=== PATIENT | male | born 2000 | race Two or more races ===

== ENCOUNTER 2020-10-18 22:55 | Emergency (ER) | payer OTHER ==
[~2020-10-18] VITALS: Ht 165.1 cm; Wt 60.9 kg
[2020-10-18] MEDS ORDERED: SODIUM CHLORIDE 0.9% 1,000 ML ONE (23:33)
[2020-10-18 23:49] LABS: BASOPHILS % (AUTO) 0.2 % (0.0-2.0); EOSINOPHILS % (AUTO) 0.4 % (1.0-6.0); HEMATOCRIT 43.5 % (41-53); HEMOGLOBIN 14.2 g/dL (13.5-17.5); LYMPHOCYTES # (AUTO) 7.1 K/uL (1.0-4.8); LYMPHOCYTES % (AUTO) 54.7 % (22.0-44.0); MEAN CORPUSCULAR HEMOGLOBIN 30.1 pg (26.0-34.0); MEAN CORPUSCULAR HGB CONC 32.6 G/dL (31.0-37.0); MEAN CORPUSCULAR VOLUME 92 fL (80-100); MONOCYTES # (AUTO) 1.4 K/uL (0.1-1.0); MONOCYTES % (AUTO) 10.7 % (2.0-9.0); NEUTROPHILS # (AUTO) 4.4 K/uL (1.8-7.7); PLATELET COUNT (AUTO) 186 K/uL (150-450); RED BLOOD CELL COUNT(AUTO) 4.72 MIL/uL (4.50-5.90); RED CELL DISTRIBUTION WIDTH 13.2 % (11.5-14.5)
[2020-10-19 00:01] LABS: ANION GAP 8 mmol/L (8-16); CALCIUM, TOTAL 8.6 mg/dL (8.8-10.5); CARBON DIOXIDE 30 mmol/L (22-29); CHLORIDE 105 mmol/L (98-107); CREATININE 0.96 mg/dL (0.60-1.30); GLOMERULAR FILTR. RATE CALC > 60 mL/min (>60); GLUCOSE,RANDOM 192 mg/dL (70-110); POTASSIUM 3.9 mmol/L (3.5-5.1); SODIUM SERUM 143 mmol/L (136-145); UREA NITROGEN, BLOOD 9 mg/dL (7-18)
[2020-10-19 00:07] LABS: ALANINE AMINOTRANSFERASE 29 U/L (12-78); ALBUMIN 3.9 g/dL (3.4-5.0); ALKALINE PHOSPHATASE 107 U/L (46-116); ASPARTATE AMINOTRANSFERASE 27 U/L (15-37); BILIRUBIN,TOTAL 0.2 mg/dL (0.1-1.0); TOTAL PROTEIN, SERUM 7.4 g/dL (6.4-8.2)
[2020-10-19 00:41] LABS: SALICYLATE 0.4 mg/dL (2.8-20.0)
[2020-10-19 00:43] LABS: COVID AG,FIA SOURCE NASOPHARYNGEAL
[2020-10-19 01:13] VITALS: BP 162/87
[2020-10-19] MEDS ORDERED: NALOXONE HCL 1 MG/ML 2 ML SYG IVP ONE (01:45)
[2020-10-19 01:56] LABS: ACETAMINOPHEN < 2 mcg/mL (10-30)
[2020-10-19] MEDS ORDERED: NALOXONE HCL 1 MG/ML 2 ML SYG ONE (16:39)
== END 2020-10-19 01:26 | disposition home or self-care (01) ==
LOC: EMS 23:00
DX: T40.0X1A Poisoning by opium, accidental (unintentional), initial encounter (principal); J69.0 Pneumonitis due to inhalation of food and vomit; Z20.822 Contact with and (suspected) exposure to COVID-19; Y92.89 Other specified places as the place of occurrence of the external cause
CPT/HCPCS: 70450; 71045; 80053; 85025; 87426; 93005; 96374; 99291; G0480; J2310; J7030; G0481